=== PATIENT | female | born 1955 | race African-American/Black ===

== ENCOUNTER 2021-01-19 15:21 | Emergency (ER) | payer MEDICARE ==
[~2021-01-19] VITALS: Ht 175.3 cm; Wt 76.6 kg
--- NOTE | 2021-01-19 15:44 | NUR ---
I'VE BEEN DX WITH LUNG CANCER ON THE 6TH (OF THIS MONTH), I HAD A MILD STROKE TOO. I WAS AT MY DOCTORS TODAY AND WAS HAVING A LOT OF SHORTNESS OF BREATH AND FATIGUE SO THEY TOLD ME TO COME HERE. caregiver with patient.
--- NOTE | 2021-01-19 16:29 | NUR ---
PT TO XRAY AT THIS TIME VIA [facility].
[2021-01-19 17:10] LABS: BASOPHILS % (AUTO) 1 % (0-1); EOSINOPHILS % (AUTO) 1 % (1-7); LYMPHOCYTES % (AUTO) 17 % (22-44); MEAN CORPUSCULAR HEMOGLOBIN 29.9 pg (27.0-34.8); MEAN CORPUSCULAR HGB CONC 33.3 g/dL (32.4-35.8); MEAN PLATELET VOLUME 8.6 fL (7.4-10.4); MONOCYTES % (AUTO) 10 % (2-9); NEUTROPHILS % (AUTO) 71 % (42-75); PLATELET COUNT 365 x10^3/uL (130-400); RED CELL DISTRIBUTION WIDTH 14.6 % (9.6-15.2)
[2021-01-19 17:11] LABS: MD NO
[2021-01-19 17:19] LABS: ALANINE AMINOTRANSFERASE 41 U/L (12-78); ALBUMIN 3.2 g/dL (3.4-5.0); ANION GAP 10 mmol/L (5-15); CALCIUM 9.5 mg/dL (8.5-10.1); CHLORIDE 106 mmol/L (98-107); CREATININE 1.05 mg/dL (0.55-1.02)
[2021-01-19 17:23] LABS: ALKALINE PHOSPHATASE 104 U/L (45-117); BILIRUBIN,TOTAL 0.5 mg/dL (0.2-1.0); TOTAL PROTEIN 7.6 g/dL (6.4-8.2); TROPONIN I 0.033 ng/mL (0.000-0.045)
--- NOTE | 2021-01-19 17:58 | NUR ---
CT AWAITING IV FOR CTA
[2021-01-19] MEDS ORDERED: OMNIPAQUE 350 MG/ML, 100ML BOTTLE ONE (18:32)
[2021-01-19 19:56] VITALS: BP 131/74
[2021-01-19] MEDS ORDERED: MORPHINE SULFATE 4 MG/ML, 1ML ONE (20:22)
[2021-01-19] MEDS ORDERED: ONDANSETRON 2MG/ML, 2ML ONE (20:22)
[2021-01-19] MEDS ORDERED: ONDANSETRON 2MG/ML, 2ML IVPush ONE (20:30)
[2021-01-19] MEDS ORDERED: MORPHINE SULFATE 4 MG/ML, 1ML IVPush PRN (20:30)
== END 2021-01-19 20:57 | disposition home or self-care (01) ==
LOC: ED 20:50
DX: J15.9 Unspecified bacterial pneumonia (principal); C34.12 Malignant neoplasm of upper lobe, left bronchus or lung; R07.89 Other chest pain; R00.0 Tachycardia, unspecified; Z79.01 Long term (current) use of anticoagulants
CPT/HCPCS: 36415; 71046; 71275; 80053; 84484; 85025; 93005; 96374; 96375; 99285; J2270; J2405; Q9967